=== PATIENT | female | born 1965 | race Caucasian/White ===

== ENCOUNTER 2016-12-07 10:18 | Outpatient (CLI) | payer BC | END 2016-12-07 11:06 | LOC: D.MAMMO 10:18 | DX: Z12.31 Encounter for screening mammogram for malignant neoplasm of breast (principal) ==

== ENCOUNTER 2017-12-14 18:00 | Outpatient (CLI) | payer BC | END 2017-12-14 23:59 | disposition home or self-care (01) | LOC: D.MAMMO 18:00 | DX: Z12.31 Encounter for screening mammogram for malignant neoplasm of breast (principal) ==

== ENCOUNTER 2020-01-20 08:45 | Outpatient (CLI) | payer BC | END 2020-01-20 09:45 | disposition home or self-care (01) | LOC: D.MAMMO 08:45 | PROVIDERS: ATTEND Family Medicine | DX: Z12.31 Encounter for screening mammogram for malignant neoplasm of breast (principal) ==